=== PATIENT | female | born 1955 | race African-American/Black ===

== ENCOUNTER 2019-05-17 14:49 | Emergency (ER) | payer SELFPAY ==
[~2019-05-17] VITALS: Ht 157.5 cm; Wt 97.7 kg
[2019-05-17 16:16] LABS: APPEARANCE,URINE CLOUDY (CLEAR); BILIRUBIN,URINE NEGATIVE (NEGATIVE); GLUCOSE, URINE (UA) NEGATIVE (NEGATIVE); KETONES,URINE NEGATIVE (NEGATIVE); LEUKOCYTE ESTERASE ,URINE NEGATIVE (NEGATIVE); NITRATE,URINE NEGATIVE (NEGATIVE); OCCULT BLOOD,URINE NEGATIVE (NEGATIVE); PROTEIN,URINE NEGATIVE (NEGATIVE); UROBILINOGEN,URINE 0.2 mg/dL (<=1.0)
[2019-05-17 16:26] VITALS: BP 148/80
== END 2019-05-17 16:28 | disposition home or self-care (01) ==
LOC: EMS 14:50
DX: R10.9 Unspecified abdominal pain (principal)